=== PATIENT | male | born 1955 | race Caucasian/White ===

== ENCOUNTER 2019-08-05 12:14 | Inpatient (IN) | payer BC, OTHER ==
[~2019-08-05] VITALS: Ht 182.9 cm; Wt 90.7 kg
--- OUTSIDE RECORDS SUMMARY | 2019-08-05 12:18 | XMS REPORT ---
Author Author [facility] Organization [facility] Address [address] [place] [address] Phone Unavailable Care Team Providers Care Research Assistant Professor Name Role Phone Unavailable Unavailable Payers Payer Name Policy Type Policy Number Effective Date Expiration Date S ource Problems This patient has no known problems. Allergies, Adverse Reactions, Alerts Allergy Name Allergy Type Status Severity Reaction(s) Onset Date Inacti ve Date Treating Clinician Comments Source Penicillins DA Active 2018-01-30 00:00:00 [facility] neomycin DA Active 2018-01-30 00:00:00 [facility] bacitracin DA Active 2018-01-30 00:00:00 [facility] polymyxin B DA Active 2018-01-30 00:00:00 [facility] Medications This patient has no known medications. Procedures This patient has no known procedures. Results This patient has no known results.
[2019-08-05] MEDS ORDERED: SODIUM CHLORIDE 0.9% 1000ML 1,000 ML IV STA (12:48)
[2019-08-05] MEDS ORDERED: PANTOPRAZOLE 40 MG 10ML VIAL IV STA (12:48)
[2019-08-05 13:04] LABS: BASOPHILS # (AUTO) 0.1 (0.0-0.1); BASOPHILS % 0.7 % (0.0-1.0); EOSINOPHILS # (AUTO) 0.1 (0.0-0.4); EOSINOPHILS % 1.5 % (0.0-6.0); HEMATOCRIT 42.5 % (38.2-49.6); HEMOGLOBIN 15.7 g/dL (14.0-18.0); LYMPHOCYTES # (AUTO) 1.7 (1.0-3.2); LYMPHOCYTES % 18.8 % (18.0-39.1); MEAN CORPUSCULAR HEMOGLOBIN 36.7 pg (28-32); MEAN CORPUSCULAR HGB CONC 36.9 g/dL (31-35); MEAN CORPUSCULAR VOLUME 99.3 fL (81-99); MONOCYTES # (AUTO) 1.2 (0.2-0.8); MONOCYTES % 13.7 % (4.4-11.3); NEUTROPHILS # (AUTO) 5.8 (2.1-6.9); PLATELET COUNT 240 x10e3/uL (140-360); RED BLOOD COUNT 4.28 x10e6/uL (4.3-5.7); RED CELL DISTRIBUTION WIDTH 11.6 % (11.7-14.4)
[2019-08-05 13:22] LABS: INR 0.99; PROTHROMBIN TIME 13.7 seconds (11.9-14.5)
[2019-08-05 13:23] LABS: PARTIAL THROMBOPLASTIN TIME 30.8 seconds (23.8-35.5)
[2019-08-05 13:31] LABS: ALBUMIN 3.4 g/dL (3.5-5.0); ALBUMIN/GLOBULIN RATIO 0.9 (0.8-2.0); ANION GAP 12.3 mmol/L (8-16); CREATININE, SERUM 1.32 mg/dL (0.72-1.25); MAGNESIUM 2.2 MG/DL (1.3-2.1)
[2019-08-05 13:36] LABS: POTASSIUM 2.3 mmol/L (3.5-5.1)
[2019-08-05 13:47] LABS: BILIRUBIN,URINE NEGATIVE (NEGATIVE); CLARITY,URINE CLEAR (CLEAR); COLOR,URINE YELLOW (YELLOW); KETONES,URINE NEGATIVE (NEGATIVE); LEUKOCYTE ESTERASE ,URINE NEGATIVE (NEGATIVE); NITRITE,URINE NEGATIVE (NEGATIVE); PROTEIN,URINE DIPSTICK NEGATIVE (NEGATIVE); URINE UROBILINOGEN 0.2 mg/dL (0.2 - 1)
[2019-08-05 13:54] LABS: THYROID STIMULATING HORMONE 1.996 uIU/mL (0.350-4.940)
--- NOTE | 2019-08-05 13:55 | Diagnostic Imaging Report ---
EXAMINATION: CHEST SINGLE (PORTABLE) INDICATION: Weakness, fatigue COMPARISON: None FINDINGS: LINES/TUBES:EKG leads overlie the chest. LUNGS:The lungs are mildly hyperinflated. No focal consolidation or pulmonary edema. PLEURA:No pleural effusion or pneumothorax. MEDIASTINUM:The cardiomediastinal silhouette appears normal in size and shape. BONES/SOFT TISSUES:No acute osseous injury. Internal fixation hardware of the left clavicle. ABDOMEN:No free air under the diaphragm. IMPRESSION: No focal pneumonia or pulmonary edema. Signed by: Cliff Rees MD on 08/05/2019 1:51 PM
[2019-08-05 13:58] LABS: BACTERIA,URINE FEW /HPF; EPITHELIAL CELLS,URINE RARE /LPF; RBC,URINE 0-5 /HPF (0-5)
[2019-08-05] MEDS ORDERED: POTASSIUM CHLORIDE 20 MEQ TAB CR PO STA (14:02)
[2019-08-05] MEDS ORDERED: KCL 20MEQ/.9 SOD CHL 1,000 ML IV ONE (14:15)
--- NOTE | 2019-08-05 14:15 | Diagnostic Imaging Report ---
Examination: CT BRAIN WO CONTRAST History:Confusion. Altered mental status. Comparison studies:None Technique: Axial images were obtained from the skull base to the vertex. Coronal and sagittal images reconstructed from the axial data. Dose modulation, iterative reconstruction, and/or weight based adjustment of the mA/kV was utilized to reduce the radiation dose to as low as reasonably achievable. Intravenous contrast: None Findings: Scalp: No abnormalities. Bones: No fractures, blastic or lytic lesions. Brain sulci: Appropriate for age. Ventricles: Normal in size and configuration. No hydrocephalus. Extra-axial space: No abnormalities. Parenchyma: No masses, hemorrhage, or acute or chronic cortical based vascular insults.. Sellar/suprasellar region: No abnormalities. Craniocervical junction: Patent foramen magnum. No Chiari one malformation. Incidental findings: Atherosclerotic calcification of the cavernous and supraclinoid internal carotid arteries. Opacification of the right frontal sinus with focal dehiscence of the anterior wall (3.7 mm) and involvement of the right frontal soft tissues is identified and concerning for subperiosteal abscess with associated osteomyelitis. Opacified left frontal sinus with peripheral and internal dystrophic calcifications. Impression: No acute intracranial abnormalities. 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 Signed by: Dr. Smiley Rodriguez M.D. on 08/05/2019 2:12 PM
--- NOTE | 2019-08-05 14:18 | Emergency Department Note ---
History of Present Illnes History of Present Illness Chief Complaint: General Medicine Complaints History of Present Illness This is a 64 year old male complaints of altered mental status, confusion, weakness and constipation since a tic bite that took place about 4 weeks ago. Patient was seen at an urgent care 9 days ago for facial swelling, muscle pain, joint pain and weakness and was prescribed antibiotics and told his blood work was negative for lyme disease. The patient's weakness, joint and muscle pain and confusion have persisted. The tic bite was on the left upper thigh and appears slightly red but not swollen or painful. Patient is alert and oriented x 4 in triage. Historian: Patient, Family Member Arrival Mode: Car Mail Service Coordinator Required: No Onset (how long ago): week(s) (4 weeks) Location: all over Quality: achy Radiation: non-radiation Severity: moderate Onset quality: gradual Duration (how long): week(s) (4) Timing of current episode: constant Progression: waxing and waning Chronicity: new Context: recent illness Relieving factors: none Exacerbating factors: none Associated symptoms: confusion, malaise, weakness Treatments prior to arrival: none Past Medical/Family History Physician Review I have reviewed the patient's past medical and family history. Any updates have been documented here. Past Medical History Recent Fever: No Clinical Suspicion of Infectio: No New/Unexplained Change in Ment: Yes Past Medical History: Hypertension, Anxiety, Hyperlipedemia Other Surgery: shoulder replacement Collar bone surgery Social History Smoking Cessation: Current every day smoker Counseling Performed: No Alcohol Use: Social Any Illegal Drug Use: No TB Exposure/Symptoms: No Physically hurt or threatened: No Family History Family history of heart diseas: Yes Other Last Tetanus: 2 years ago Any Pre-Existing Lines (PICC,: No Is patient up to date on immun: Yes Last Flu: UTD Last Pneumovax: UTD Review of Systems Review of Systems Constitutional: malaise, weakness, other (~20 lb weight loss in 3 months) EENTM: no symptoms Cardiovascular: no symptoms Respiratory: no symptoms Gastrointestinal: no symptoms Genitourinary: no symptoms Musculoskeletal: joint pain, muscle pain, muscle stiffness Neurological: weakness, other (intermittent confusion & forgetfulness) Psychological: no symptoms Endocrine: no symptoms Hematological/Lymphatic: no symptoms Review of other systems All other systems reviewed and negative. Physical Exam Related Data Allergies: Coded Allergies: bacitracin (Verified Allergy, Severe, skin patrick, 08/05/19) lidocaine (Verified Allergy, Severe, skin patrick, 08/05/19) neomycin (Verified Allergy, Severe, patrick to skin, 08/05/19) polymyxin B (Verified Allergy, Severe, skin patrick, 08/05/19) Penicillins (Verified Allergy, Unknown, 08/05/19) Triage Vital Signs Vital Signs Date Time Temp Pulse Resp B/P (MAP) Pulse Ox O2 Delivery O2 Flow Rate FiO2 08/05/19 12:25 98.6 89 17 145/93 97 Vital signs reviewed: Yes Physical Exam CONSTITUTIONAL Constitutional: well-developed, well-nourished, ill appearing HENT HENT: normocephalic, atraumatic, oropharynx clear/moist, nose normal HENT L/R: left ext ear normal, right ext ear normal EYES Eyes: PERRL, conjunctivae normal NECK Neck: ROM normal PULMONARY Pulmonary: effort normal, breath sounds normal CARDIOVASCULAR Cardiovascular: regular rhythm, heart sounds normal, capillary refill normal, normal rate GASTROINTESTINAL Abdominal: soft, nontender, bowel sounds normal GENITOURINARY Genitourinary: exam deferred SKIN Skin: warm, dry, other (LEFT THIGH WITH SMALL SCABBED LESION, HEALING) MUSCULOSKELETAL Musculoskeletal: ROM normal NEUROLOGICAL Neurological: alert, oriented x 3, no gross motor or sensory deficits PSYCHOLOGICAL Psychological: mood/affect normal, judgement normal Results Laboratory Result Diagram: 08/05/19 1233 08/05/19 1233 Laboratory Laboratory Tests Test 08/05/19 13:20 08/05/19 12:33 Urine Color Yellow (YELLOW) Urine Clarity Clear (CLEAR) Urine pH 6.5 (5 - 7) Urine Specific [place] 1.020 (1.010-1.025) Urine Protein Negative (NEGATIVE) Urine Glucose (UA) Negative (NEGATIVE) Urine Ketones Negative (NEGATIVE) Urine Blood Trace (NEGATIVE) Urine Nitrite Negative (NEGATIVE) Urine Bilirubin Negative (NEGATIVE) Urine Urobilinogen 0.2 mg/dL (0.2 - 1) Urine Leukocyte Esterase Negative (NEGATIVE) Urine RBC 0-5 /HPF (0-5) Urine WBC None /HPF (0-5) Urine Epithelial Cells Rare /LPF (NONE) Urine Bacteria Few /HPF (NONE) Urine Coarse Granular Casts 1-5 (0) White Blood Count 8.96 x10e3/uL (4.8-10.8) Red Blood Count 4.28 x10e6/uL (4.3-5.7) Hemoglobin 15.7 g/dL (14.0-18.0) Hematocrit 42.5 % (38.2-49.6) Mean Corpuscular Volume 99.3 fL (81-99) Mean Corpuscular Hemoglobin 36.7 pg (28-32) Mean Corpuscular Hemoglobin Concent 36.9 g/dL (31-35) Red Cell Distribution Width 11.6 % (11.7-14.4) Platelet Count 240 x10e3/uL (140-360) Neutrophils (%) (Auto) 65.0 % (38.7-80.0) Lymphocytes (%) (Auto) 18.8 % (18.0-39.1) Monocytes (%) (Auto) 13.7 % (4.4-11.3) Eosinophils (%) (Auto) 1.5 % (0.0-6.0) Basophils (%) (Auto) 0.7 % (0.0-1.0) Neutrophils # (Auto) 5.8 (2.1-6.9) Lymphocytes # (Auto) 1.7 (1.0-3.2) Monocytes # (Auto) 1.2 (0.2-0.8) Eosinophils # (Auto) 0.1 (0.0-0.4) Basophils # (Auto) 0.1 (0.0-0.1) Absolute Immature Granulocyte (auto 0.03 x10e3/uL (0-0.1) Prothrombin Time 13.7 seconds (11.9-14.5) Prothromb Time International Ratio 0.99 Activated Partial Thromboplast Time 30.8 seconds (23.8-35.5) Sodium Level 133 mmol/L (136-145) Potassium Level 2.3 mmol/L (3.5-5.1) Chloride Level 90 mmol/L (98-107) Carbon Dioxide Level 33 mmol/L (22-29) Anion Gap 12.3 mmol/L (8-16) Blood Urea Nitrogen 37 mg/dL (7-26) Creatinine 1.32 mg/dL (0.72-1.25) Estimat Glomerular Filtration Rate 55 ML/MIN (60-) BUN/Creatinine Ratio 28 (6-25) Glucose Level 106 mg/dL (74-118) Calcium Level 18.0 mg/dL (8.4-10.2) Magnesium Level 2.2 MG/DL (1.3-2.1) Total Bilirubin 1.3 mg/dL (0.2-1.2) Aspartate Amino Transf (AST/SGOT) 243 IU/L (5-34) Alanine Aminotransferase (ALT/SGPT) 280 IU/L (0-55) Alkaline Phosphatase 139 IU/L (40-150) Creatine Kinase 14 IU/L (30-200) B-Type Natriuretic Peptide 243.6 pg/mL (0-100) Total Protein 7.3 g/dL (6.5-8.1) Albumin 3.4 g/dL (3.5-5.0) Globulin 3.9 g/dL (2.3-3.5) Albumin/Globulin Ratio 0.9 (0.8-2.0) Lab results reviewed: Yes Laboratory comments EXAMINATION: CHEST SINGLE (PORTABLE) INDICATION: Weakness, fatigue COMPARISON: None FINDINGS: LINES/TUBES:EKG leads overlie the chest. LUNGS:The lungs are mildly hyperinflated. No focal consolidation or pulmonary edema. PLEURA:No pleural effusion or pneumothorax. MEDIASTINUM:The cardiomediastinal silhouette appears normal in size and shape. BONES/SOFT TISSUES:No acute osseous injury. Internal fixation hardware of the left clavicle. ABDOMEN:No free air under the diaphragm. IMPRESSION: No focal pneumonia or pulmonary edema. Signed by: Cliff Rees MD on 08/05/2019 1:51 PM Examination: CT BRAIN WO CONTRAST History:Confusion. Altered mental status. Comparison studies:None Technique: Axial images were obtained from the skull base to the vertex. Coronal and sagittal images reconstructed from the axial data. Dose modulation, iterative reconstruction, and/or weight based adjustment of the mA/kV was utilized to reduce the radiation dose to as low as reasonably achievable. Intravenous contrast: None Findings: Scalp: No abnormalities. Bones: No fractures, blastic or lytic lesions. Brain sulci: Appropriate for age. Ventricles: Normal in size and configuration. No hydrocephalus. Extra-axial space: No abnormalities. Parenchyma: No masses, hemorrhage, or acute or chronic cortical based vascular insults.. Sellar/suprasellar region: No abnormalities. Craniocervical junction: Patent foramen magnum. No Chiari one malformation. Incidental findings: Atherosclerotic calcification of the cavernous and supraclinoid internal carotid arteries. Opacification of the right frontal sinus with focal dehiscence of the anterior wall (3.7 mm) and involvement of the right frontal soft tissues is identified and concerning for subperiosteal abscess with associated osteomyelitis. Opacified left frontal sinus with peripheral and internal dystrophic calcifications. Impression: No acute intracranial abnormalities. 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 Signed by: Dr. Smiley Rodriguez M.D. on 08/05/2019 2:12 PM Imaging Imaging results reviewed: Yes Impressions EXAMINATION: CHEST SINGLE (PORTABLE) INDICATION: Weakness, fatigue COMPARISON: None FINDINGS: LINES/TUBES:EKG leads overlie the chest. LUNGS:The lungs are mildly hyperinflated. No focal consolidation or pulmonary edema. PLEURA:No pleural effusion or pneumothorax. MEDIASTINUM:The cardiomediastinal silhouette appears normal in size and shape. BONES/SOFT TISSUES:No acute osseous injury. Internal fixation hardware of the left clavicle. ABDOMEN:No free air under the diaphragm. IMPRESSION: No focal pneumonia or pulmonary edema. Signed by: Cliff Rees MD on 08/05/2019 1:51 PM Diagnostics Tests Diagnostic test(s) reviewed: Yes Procedures 12 Lead ECG Interpretation Mail Service Coordinator: Interpreted by ED physician Date: August 05, 2019 Time: 12:29 Prior [employer] tracings: reviewed Rhythm: sinus rhythm Rate: normal (89) QRS axis: normal ST segments depression: II, III, aVF, V5, V6 T waves flattening: I, aVL, V5, V6 Clinical Impression: abnormal ECG Critical Care Time Total Critical Care Time (min): 35 Critcal care necessary due to: dehydration (SEVERE HYPERCALCEMIA) Critcal care time spent by me: discussion w consultants, discussion w primary provider, evaluation patient response to tx, examination of patient, order/review laboratory studies, order/review radiographic studies, re- evaluation of patient condition Subsequent provider I assumed direction of critical care for this patient from another provider of my specialty. Assessment & Plan Assessment & Plan Final Impression: (1) Sinusitis (2) Hypercalcemia (3) Hypokalemia (4) Renal insufficiency (5) Hepatitis Assessment & Plan IVF'S, HYDROCORTISONE, PAMIDRONATE, CALCITONIN ORDERED. ZOSYN/VANCO. ADMIT TO Dom JOINER Disposition: ADMITTED Last Vital Signs Date Time Temp Pulse Resp B/P (MAP) Pulse Ox O2 Delivery O2 Flow Rate FiO2 08/05/19 12:25 98.6 89 17 145/93 97 Medications in the ED Pantoprazole Sodium 40 mg ONCE STAT IV ; Start 08/05/19 at 12:48; Stop 08/05/19 at 12:49 Sodium Chloride 1,000 ml @ 0 mls/hr Q0M STAT IV ; Start 08/05/19 at 12:48; Stop 08/05/19 at 12:49 Potassium Chloride 40 meq NOW STAT PO ; Start 08/05/19 at 14:02; Stop 08/05/19 at 14:03; Status UNV Potassium Chloride/Sodium Chloride 1,000 ml @ 200 mls/hr Q5H ONCE IV ; Start 08/05/19 at 14:15; Stop 08/05/19 at 19:14; Status UNV RITO MARINELLI MD August 05, 2019 14:18
[2019-08-05] MEDS ORDERED: PAMIDRONATE DISODIUM 90 MG in SODIUM CHLORIDE 0.9% 1000ML 1,000 ML IV ONE (14:30)
[2019-08-05] MEDS ORDERED: CALCITONIN SALMON 400 IU/2ML VIAL IM ONE (14:30)
[2019-08-05] MEDS ORDERED: HYDROCORTISONE SOD SUCCINATE 100 MG VIAL IV ONE (14:30)
[2019-08-05 15:04] LABS: ERYTHROCYTE SEDIMENTATION RATE 30 mm/hr (0-13)
[2019-08-05] MEDS ORDERED: ONDANSETRON HCL INJ 2MG/ML 2ML 2 MG/ML VIAL IV PRN (15:15)
--- OUTSIDE RECORDS SUMMARY | 2019-08-05 15:31 | XMS REPORT ---
Author Author [facility] t Organization [facility] Address [address] [place] [id number] Phone Unavailable Care Team Providers Care Paraprofessional Interpreter Name Role Phone Carmita MARINELLI Attphys Unavailable Payers Payer Name Policy Type Policy Number Effective Date Expiration Date S ource Problems This patient has no known problems. Allergies, Adverse Reactions, Alerts Allergy Name Allergy Type Status Severity Reaction(s) Onset Date Inacti ve Date Treating Clinician Comments Source Penicillins DA Active 2018-01-30 00:00:00 [facility] neomycin DA Active 2018-01-30 00:00:00 [facility] bacitracin DA Active 2018-01-30 00:00:00 [facility] polymyxin B DA Active 2018-01-30 00:00:00 [facility] Medications This patient has no known medications. Procedures This patient has no known procedures. Results Test Description Test Time Test Comments Results Result Comments Source CT BRAIN WO 2019-08-05 14:08:00 [facility] [address] [address] Patient Name: YURIY FORD MR #: [id number] : 1955 Age/Sex: 64/M Req #: [id number] Adm Physician: Ordered by: RITO MARINELLI MD Report #: [id number] Location: ER Room/Bed: Procedure: [id number] CT/CT BRAIN WO Exam Date: 08/05/19 Exam Time: 1310 REPORT STATUS: Signed Examination: CT BRAIN WO CONTRAST History:Confusion. Altered mental status. Comparison studies:None Technique: Axial images were obtained from the skull base to the vertex. Coronal and sagittal images reconstructed from the axial data. Dose modulation, iterative reconstruction, and/or weight based adjustment of the mA/kV was utilized to reduce the radiation dose to as low as reasonably achievable. Intravenous contrast: None Findings: Scalp: No abnormalities. Bones: No fractures, blastic or lytic lesions. Brain sulci: Appropriate for age. Ventricles: Normal in size and configuration. No hydrocephalus. Extra-axial space: No abnormalities. Parenchyma: No masses, hemorrhage, or acute or chronic cortical based vascular insults.. Sellar/suprasellar region: No abnormalities. Craniocervical junction: Patent foramen magnum. No Chiari one malformation. Incidental findings: Atherosclerotic calcification of the cavernous and supraclinoid internal carotid arteries. Opacification of the right frontal sinus with focal dehiscence of the anterior wall (3.7 mm) and involvement of the right frontal soft tissues is identified and concerning for subperiosteal abscess with associated osteomyelitis. Opacified left frontal sinus with peripheral and internal dystrophic calcifications. Impression: No acute intracranial abnormalities. 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 Signed by: Dr. Smiley Rodriguez M.D. on 08/05/2019 2:12 PM Dictated By: SMILEY DANIEL MD 11 Transcribed By: FRANKY on 08/05/191411 COPY TO: RITO MARINELLI MD CHEST SINGLE (PORTABLE) 2019-08-05 13:51:[address] [address] Patient Name: YURIY FORD MR #: [id number] : 1955 Age/Sex: 64/M Req #: [id number] Adm Physician: Ordered by: RITO MARINELLI MD Report #: [id number] Location: ER Room/Bed: Procedure: [id number] DX/CHEST SINGLE (PORTABLE) Exam Date: 08/05/19 Exam Time: 1310 REPORT STATUS: Signed EXAMINATION: CHEST SINGLE (PORTABLE) INDICATION: Weakness, fatigue COMPARISON: None FINDINGS: LINES/TUBES:EKG leads overlie the chest. LUNGS:The lungs are mildly hyperinflated. No focal consolidation or pulmonary edema. PLE URA:No pleural effusion or pneumothorax. MEDIASTINUM:The cardiomediastinal silhouette appears normal in size and shape. BONES/SOFT TISSUES:No acute osseous injury. Internal fixation hardware of the left clavicle. ABDOMEN:No free air under the diaphragm. IMPRESSION: No focal pneumonia or pulmonary edema. Signed by: Alice Dumont MD on 08/05/2019 1:51 PM Dictated By: ALICE DUMONT MD 135 Transcribed By: FRANKY on 08/05/19 1351 COPY TO: RITO MARINELLI MD
[2019-08-05] MEDS ORDERED: VANCOMYCIN 1GM/NS 250 ML 250 ML IV ONE (16:00)
[2019-08-05] MEDS: CEFEPIME 2 GM/NS 0.9% 100 ML 100 ML IV SCH (16:51)
[2019-08-05] MEDS: SODIUM CHLORIDE 0.9% 1000ML 1,000 ML IV SCH ×2 (16:52→22:43)
--- NOTE | 2019-08-05 18:14 | NUR ---
PT ARRIVED TO UNIT VIA STRETCHER, RESP EVEN AND UNLABORED AT THIS TIME, PT HAS NO C/O PAIN WHEN ASKED, PT ORIENTED TO ROOM AND CALL LIGHT , BED IN LOWEST POSITION AT THIS TIME, BED RAILS UP X2, CALL LIGHT IN REACH WILL CONT TO MONITOR.
--- NOTE | 2019-08-05 18:51 | NUR ---
CALL TO DR SALENA LOBO FOR ORDERS PT B/P 177/103, P 126, R 18, PT ASYMPTOMATIC NO DISTRESS NOTED NO C/O PAIN NO C/O HEAD NOR CHEST PAIN, PT STATES HE WAS ON A BLOOD PRESSURE MEDICATION, BUT DON'T REMEMBER WHAT MEDICATION, PT HAD CALL LIGHT IN REACH.
[2019-08-05 19:12] LABS: CREATINE KINASE MB 1.8 ng/mL (0-5.0)
--- NOTE | 2019-08-05 19:28 | NUR ---
WALKING ROUNDS COMPLETE, REPORT GIVEN TO ONCOMING NURSE.
[2019-08-05 20:00] VITALS: BP_SYST 177; BP_SYST 183; BP_DIAS 103; BP_DIAS 92
[2019-08-05 20:42] VITALS: BP 183/92
[2019-08-06] VITALS (9 sets, daily range): BP systolic 129–175; BP diastolic 84–103
[2019-08-06] MEDS ORDERED: METOPROLOL TARTRATE INJ 1 MG/ML VIAL IV PRN (00:15)
--- NOTE | 2019-08-06 02:32 | History and Physical ---
PRIMARY CARE PHYSICIAN: None listed. CONSULTING PHYSICIANS: Momo Grove MD, with Endocrinology and Dr. Tony Stallings MD, with ENT. CHIEF COMPLAINT: Severe weakness and altered mental status. HISTORY OF PRESENT ILLNESS: Mr. Vasquez is a 64-year-old male, who presented to the emergency department with complaints of altered mental status, confusion, weakness and constipation since a tick did him on the left upper thigh 4 weeks ago. He was seen in Urgent Care 9 days ago for facial swelling, muscle pain, joint pain, and weakness, was told that his blood work was negative for Lyme disease. He was prescribed antibiotics. However, his weakness and confusion have persisted. He currently denies any joint or muscle pain. He denies any sick contacts or recent travel. PAST MEDICAL HISTORY: Hypertension, hyperlipidemia, anxiety. PAST SURGICAL HISTORY: Left shoulder replacement, left collarbone surgery. FAMILY HISTORY: Denies any significant past family history. SOCIAL HISTORY: He states he has been smoking 2 packs per day since age 26, so about 38 years for a total of 76 pack-years. He drinks alcohol daily, namely beer and hard liquor. He drinks about 2 drinks per day. He denies any history of illicit drug use. He lives with his and two stepchildren. 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 He denies use of a cane or walker, but has been extremely weak, which has affected his ability to ambulate. ALLERGIES: POLYMYXIN B, BACITRACIN, NEOMYCIN, LIDOCAINE, PENICILLINS. MEDICATIONS: No home medications are listed. He is currently on pamidronate disodium drip at 126 mL/h into peripheral IV, cefepime q.12 hours. He had one dose of vancomycin 1 g IV in the emergency department, p.r.n. Zofran, Pepcid b.i.d., IV Zosyn, hydrocortisone, Lasix. PHYSICAL EXAMINATION: VITAL SIGNS: Temperature 98.4, heart rate 84, blood pressure 145/93, subsequently 183/92, respirations 14, oxygen saturation 100% on room air. Height 6 feet 0 inches, weight 200 pounds, BMI 27.12. GENERAL: Supine in bed. Able to sit up on the edge of the bed; however, unable to lift his arms above his head. Difficult to balance. LUNGS: Clear to auscultation. Respiratory pattern even and unlabored. Insufficient inspiratory volume. HEENT: EOMI. NECK: Supple. No lymphadenopathy, thyromegaly, or JVD noted. CARDIOVASCULAR: Regular rate and rhythm. No murmur. ABDOMEN: Bowel sounds positive. Soft, nontender. No guarding. EXTREMITIES: Without pitting edema. No clubbing, cyanosis, or marked swelling. Obvious signs of venous stasis, bilateral lower extremities. NEUROLOGICAL: Lethargic, GCS 14, eye 3, verbal 5, motor 6. Nonfocal. LABORATORY DATA: WBC 8.96, hemoglobin 15.7, hematocrit 42.5, platelets 240. PT 13.7, INR 0.99, PTT 30.8. Sodium 133, potassium 2.3, chloride 90, CO2 of 33, anion gap 12.3, BUN 37, creatinine 1.32, estimated GFR 55, glucose 106, calcium 18, ionized calcium 2.1, magnesium 2.2, total bilirubin 1.3, AST 243, ALT 280, alkaline phosphatase 139, creatine kinase 14, CK-MB 2, troponin I 0.132. B-type natriuretic peptide 243.6, total protein 7.3, albumin 3.4. TSH 1.996. Repeat creatine kinase was 12, CK-MB 1.8, troponin I 0.126. Parathyroid hormone is pending as are parathyroid hormone interpretation related peptide. Urinalysis negative. No leukocyte esterase or nitrites, trace amount of blood, coarse granular casts 1-5. German virus by PCR is pending. Blood cultures x2 and urine culture have been collected and are pending. A 12-lead EKG showed normal sinus rhythm, heart rate of 89. Chest x-ray negative. No focal pneumonia. CT of the brain showed no acute intracranial abnormalities. Findings are concerning for right frontal sinus subperiosteal abscess with associated osteomyelitis. ASSESSMENT AND PLAN: 1. Acute sinusitis, possible right frontal sinus subperiosteal abscess with associated osteomyelitis. ENT consulted. WBCs within normal limits. IV vancomycin and cefepime have been given vancomycin was a one-time dose. Continue IV fluids. 2. Severe acute hypercalcemia. Endocrinology consulted. Calcium level 18, ionized calcium level 2.1. Continue pamidronate disodium IV infusion and calcitonin. Hydrocortisone given for swelling. 3. Acute hypokalemia. Potassium level 2.3, status post 40 mEq p.o. once. Reassess potassium in the morning. 4. Altered mental status from baseline with generalized weakness. Monitor for improvement as calcium level is corrected. Physical Therapy eval and treat. Alert, oriented x4 with some lethargy during encounter. 5. Uncontrolled hypertension, 183/92. Monitor for improvement as calcium is corrected. IV metoprolol 2.5 mg IV q.6 hours p.r.n. for systolic blood pressure greater than 150. 6. Acute kidney injury versus chronic kidney disease. Continue IV fluids. Creatinine 1.32, estimated GFR 55. Unsure of baseline. Monitor renal function with daily labs. 7. Current smoker with history of 76 pack years. Encouraged cessation. 8. Transaminitis with daily ETOH use. Total bilirubin 1.3, AST 243, ALT 280. Monitor LFTs. 9. Acute mild hyponatremia. Sodium 133. Monitor for improvement. Continue current IV fluids. 10. Acute mild hypomagnesemia. Magnesium level 2.2. Continue IV fluids. Monitor magnesium level. 11. Hyperlipidemia. Assess lipid panel. 12. Anxiety. Supportive care. 13. Tick bite 4 weeks ago. Apparently, previous blood work showed no Lyme disease. 14. Ambulatory dysfunction. PT eval and treat. 15. Venous stasis. 16. Prophylaxis, IV Pepcid b.i.d. H and P time spent 70 minutes. [id number]. Dictated by Rodrigue Lester NP Jerardo oRsales MD HWP/MODL /[id number]
[2019-08-06] MEDS: CEFEPIME 2 GM/NS 0.9% 100 ML 100 ML IV SCH ×2 (04:00→17:08)
[2019-08-06 05:13] LABS: BASOPHILS % 0.4 % (0.0-1.0); EOSINOPHILS # (AUTO) 0.1 (0.0-0.4); EOSINOPHILS % 0.6 % (0.0-6.0); HEMATOCRIT 34.5 % (38.2-49.6); HEMOGLOBIN 12.9 g/dL (14.0-18.0); LYMPHOCYTES # (AUTO) 1.4 (1.0-3.2); LYMPHOCYTES % 14.6 % (18.0-39.1); MEAN CORPUSCULAR HEMOGLOBIN 36.6 pg (28-32); MEAN CORPUSCULAR HGB CONC 37.4 g/dL (31-35); MONOCYTES # (AUTO) 1.1 (0.2-0.8); NEUTROPHILS # (AUTO) 6.7 (2.1-6.9); PLATELET COUNT 205 x10e3/uL (140-360); RED BLOOD COUNT 3.52 x10e6/uL (4.3-5.7); RED CELL DISTRIBUTION WIDTH 11.5 % (11.7-14.4)
[2019-08-06 05:33] LABS: ALANINE AMINOTRANSFERASE 207 IU/L (0-55); ALBUMIN 2.7 g/dL (3.5-5.0); ALBUMIN/GLOBULIN RATIO 0.9 (0.8-2.0); ALKALINE PHOSPHATASE 112 IU/L (40-150); ANION GAP 12.5 mmol/L (8-16); BLOOD UREA NITROGEN 36 mg/dL (7-26); BUN/CREATININE RATIO 31 (6-25); CARBON DIOXIDE 25 mmol/L (22-29); CHLORIDE 103 mmol/L (98-107); CREATININE, SERUM 1.17 mg/dL (0.72-1.25); EST GLOMERULAR FILTRATION RATE > 60 ML/MIN (60-); GLUCOSE 103 mg/dL (74-118); SODIUM 138 mmol/L (136-145)
[2019-08-06 05:35] LABS: CALCIUM 13.9 mg/dL (8.4-10.2)
[2019-08-06 05:36] LABS: POTASSIUM 2.5 mmol/L (3.5-5.1)
[2019-08-06] MEDS: SODIUM CHLORIDE 0.9% 1000ML 1,000 ML IV SCH ×3 (05:39→21:27)
[2019-08-06 05:56] LABS: CREATINE KINASE < 7 IU/L (30-200)
[2019-08-06] MEDS ORDERED: FUROSEMIDE INJ 10 MG/ML 2 ML VIAL IV SCH (06:00)
--- NOTE | 2019-08-06 06:40 | NUR ---
NEW CONSULTS FOR MIKAELA GIBBS AND DR. VZAQUEZ CALLED
[2019-08-06] MEDS ORDERED: POTASSIUM CHLORIDE 20MEQ/100ML 300 ML IV ONE (09:00)
[2019-08-06] MEDS ORDERED: ACETAMINOPHEN/CODEINE 300MG - 30MG TAB PO PRN (09:15)
[2019-08-06] MEDS ORDERED: ACETAMINOPHEN 325 MG TAB PO PRN (09:15)
[2019-08-06] MEDS: FAMOTIDINE 20 MG/2 ML VIAL IV SCH ×2 (09:27→17:00)
[2019-08-06] MEDS: POTASSIUM CHLORIDE 10MEQ EA PO SCH ×2 (10:00→17:00)
--- NOTE | 2019-08-06 13:35 | NUR ---
Mr. Vasquez is a 64-year-old male, who presented to the emergency department with complaints of altered mental status, confusion, weakness and constipation since a tick did him on the left upper thigh 4 weeks ago. He was seen in Urgent Care 9 days ago for facial swelling, muscle pain, joint pain, and weakness, was told that his blood work was negative for Lyme disease. He was prescribed antibiotics. However, his weakness and confusion have persisted. He currently denies any joint or muscle pain. He denies any sick contacts or recent travel. PAST MEDICAL HISTORY: Hypertension, hyperlipidemia, anxiety. PAST SURGICAL HISTORY: Left shoulder replacement, left collarbone surgery. FAMILY HISTORY: Denies any significant past family history. SOCIAL HISTORY: He states he has been smoking 2 packs per day since age 26, so about 38 years for a total of 76 pack-years. He drinks alcohol daily, namely beer and hard liquor. He drinks about 2 drinks per day. He denies any history of illicit drug use. He lives with his and two stepchildren. 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 He denies use of a cane or walker, but has been extremely weak, which has affected his ability to ambulate. ALLERGIES: POLYMYXIN B, BACITRACIN, NEOMYCIN, LIDOCAINE, PENICILLINS. MEDICATIONS: No home medications are listed. He is currently on pamidronate disodium drip at 126 mL/h into peripheral IV, cefepime q.12 hours. He had one dose of vancomycin 1 g IV in the emergency department, p.rLety Rushing b.i.d., IV Zosyn, hydrocortisone, Lasix. [id number]
[2019-08-06] MEDS ORDERED: SODIUM CHLORIDE 0.9% 50ML 50 ML ONE (14:48)
[2019-08-06] MEDS ORDERED: IOPAMIDOL 370 MG/ML 200 ML INFUS..BTL INJ ONE (14:48)
--- NOTE | 2019-08-06 15:13 | Diagnostic Imaging Report ---
EXAM: CT Chest, Abdomen and Pelvis WITH intravenous contrast INDICATION: Hepatitis, hypercalcemia COMPARISON: Chest radiograph of 08/05/2019 TECHNIQUE: The chest, abdomen and pelvis were scanned utilizing a multidetector helical scanner from the thoracic inlet to the pubic symphysis following administration of IV contrast. Coronal and sagittal reformations were obtained. Scan was performed during portal venous phase. IV CONTRAST: 100cc Isovue 370 ORAL CONTRAST: Water COMPLICATIONS: None RADIATION DOSE: Total DLP: 1071.3 mGy*cm Dose modulation, iterative reconstruction, and/or weight based adjustment of the mA/kV was utilized to reduce the radiation dose to as low as reasonably achievable. FINDINGS: LINES/ TUBES: None. LUNGS AND AIRWAYS: No focal consolidation or pulmonary edema. No suspicious pulmonary nodules. PLEURA: The pleural spaces are clear. HEART AND MEDIASTINUM: The thyroid gland is normal. No mediastinal, hilar or axillary lymphadenopathy. The heart is normal in size.. There is no pericardial effusion. No central pulmonary embolism. HEPATOBILIARY: Mild diffuse hepatic steatosis. No focal liver lesion. No biliary ductal dilation. Unremarkable gallbladder. SPLEEN: No splenomegaly. PANCREAS: No focal masses or ductal dilatation. ADRENALS: No adrenal nodules. KIDNEYS/URETERS: No hydronephrosis, stones, or solid mass lesions. PELVIC ORGANS/BLADDER: Unremarkable. PERITONEUM / RETROPERITONEUM: No free air or fluid. LYMPH NODES: No lymphadenopathy. VESSELS: Moderate scattered atherosclerotic calcifications of the nonaneurysmal abdominal aorta and major branches. GI TRACT: Residual oral contrast material throughout the colon. Mild diverticulosis. No CT evidence of diverticulitis. No abnormal bowel thickening. No bowel obstruction. Normal appendix. BONES AND SOFT TISSUES: No acute osseous injury. Old partially healed left posterior 10th rib fracture. No suspicious lytic or blastic lesions. Postoperative findings of internal fixation hardware of the left clavicle and left shoulder hemiarthroplasty. IMPRESSION: No evidence of primary or metastatic disease in the chest abdomen or pelvis. Diffuse hepatic steatosis. Diverticulosis without CT evidence of diverticulitis. Signed by: Cliff Rees MD on 08/06/2019 3:10 PM
--- NOTE | 2019-08-06 16:51 | Consultation ---
DATE OF CONSULTATION: Endocrine Consultation This is a patient of Dr. Rosales. Thank you very much for referring this patient. HISTORY OF PRESENT ILLNESS: This is a 64-year-old white male gentleman who was referred to me for evaluation of hypercalcemia. The patient was brought to the hospital with history of nausea, vomiting, and extreme weakness and altered mental status. On further evaluation, he was found to have a calcium of 18. He has a history of significant weight loss in the last six months. The patient also has had history of alcoholism in the past. His other medical problems include history of hypertension. The patient is a chronic smoker. PHYSICAL EXAMINATION: GENERAL: Today, the patient is awake. He is slightly emaciated. VITAL SIGNS: His heart rate is around 78, blood pressure 130/80 mmHg. HEENT: Examination essentially unremarkable. Thyroid is palpable. Clinically, he is near euthyroid. CHEST: Bilateral vesicular breathing. He has bilateral bronchospasm. CARDIAC: First and second heart sound. There is no third or fourth heart sound. Ejection systolic murmur grade 2/6. The patient has mild calf tenderness. IMPRESSION: Hypercalcemia, rule out cancer related hypercalcemia, rule out hyperparathyroidism. Dehydration, hypertension, and chronic alcoholism. PLAN: At this time, the patient has already received one dose of Aredia. We will continue the IV normal saline and Lasix and also do a serum PTH peptide level. Thanks for referring this patient. I will follow this patient with you. MD KARLI Aparicio/HARMEET /[id number]
[2019-08-06] MEDS: VANCOMYCIN 1GM/NS 250 ML 250 ML IV SCH (17:00)
--- NOTE | 2019-08-06 17:07 | NUR ---
Nutrition Intervention Note RD Recommendation(s) for Physician: -Encourage nutrition supplements -Recommend advancing diet when medically appropriate The patient meets criteria for unspecified SEVERE protein-calorie malnutrition. Plan of Care: RD following, monitoring for tolerance and adequacy Nutrition reason for involvement: Nutrition Risk Trigger MST 5 RD Assessment (08/06/19) Pt is a 64 year old male admitted with hepatitis, hypercalcemia, hypokalemia, renal insufficiency and sinusitis. Spoke to family member at bedside and pt. Pt has been tolerating liquids. Family member reported pt has been consuming < 50% of meals for the past week. Family member also stated pt has lost weight and used to weigh 220 lbs about 2 months ago. Pt currently has a weight of 200 lbs. This would be a 9% weight loss in 2 months which is considered to be significant weight loss. Pt reports some nausea. Offered pt a nutrition supplement, but pt declined. Will continue to monitor unless consulted sooner Principal Problems/Diagnoses: hepatitis, hypercalcemia, hypokalemia, renal insufficiency and sinusitis PMH: Hypertension, hyperlipidemia, anxiety. GI: soft, non-tender abdomen Skin: intact Labs: (08/05) K 2.5, BUN 36, Ca 13.9, AST 144, ALT 207 Meds: NaCl, KCl, pepcid, metoprolol, cefepime, lasix, vancomycin, zofran Ht: 72 inches Wt: 200 lbs BMI: 27.1 kg/m2 IBW: 178 lbs Malnutrition Evaluation (08/06/19) The patient meets criteria for unspecified SEVERE protein-calorie malnutrition. Energy intake: <50% of estimated energy requirements for >5 days Weight loss: 9% in 2 months Fat loss: unable to evaluate pt declined NFPE at time of visit Muscle loss: unable to evaluate pt declined NFPE at time of visit Supporting Evidence: Fluid accumulation: unable to evaluate Functional Status: unable to evaluate Nutrition Prescription (Diet Order): clear liquids Estimated Nutritional Needs: 6866-1488 calories/day (18-20 kcal/kg CBW) 90-135 g protein/day (1-1.5 g pro/kg CBW) Diet Adequacy: Not meeting calorie needs, Not meeting protein needs Tolerance: Tolerating PO Diet Education Needs Assessment: Diet education not indicated, patient on temporary/transition diet. Nutrition Care Level: moderate Nutrition Diagnosis: Severe malnutrition related to acute illness as evidenced by pt meeting < 50% of estimated energy needs for > 5 days and 9% weight loss in 2 months. Goal: Patient will meet 75-100% of estimated needs by follow up Progress: N/A Interventions: -General healthful diet, encourage Commercial beverage Monitoring/Evaluation: -Total energy intake, Total protein intake, Weight change Signed: Nancie Reza RD, LD
[2019-08-06] MEDS: SALINE 0.65% NAS SOLN 1 SPRAY BTL SCH ×2 (17:16→21:27)
[2019-08-06] MEDS ORDERED: MELATONIN 5 MG TABLET PO PRN (21:00)
[2019-08-07] VITALS (9 sets, daily range): BP systolic 123–148; BP diastolic 82–93
[2019-08-07] MEDS: CEFEPIME 2 GM/NS 0.9% 100 ML 100 ML IV SCH ×2 (03:34→15:36)
[2019-08-07] MEDS: VANCOMYCIN 1GM/NS 250 ML 250 ML IV SCH ×2 (03:35→15:36)
[2019-08-07] MEDS: FUROSEMIDE INJ 10 MG/ML 2 ML VIAL IV SCH (06:04)
[2019-08-07] MEDS: SALINE 0.65% NAS SOLN 1 SPRAY BTL SCH ×5 (06:04→22:40)
[2019-08-07 06:29] LABS: BASOPHILS # (AUTO) 0.1 (0.0-0.1); BASOPHILS % 0.9 % (0.0-1.0); EOSINOPHILS % 0.5 % (0.0-6.0); HEMATOCRIT 35.3 % (38.2-49.6); HEMOGLOBIN 12.5 g/dL (14.0-18.0); LYMPHOCYTES # (AUTO) 0.2 (1.0-3.2); LYMPHOCYTES % 3.6 % (18.0-39.1); MEAN CORPUSCULAR HEMOGLOBIN 35.7 pg (28-32); MEAN CORPUSCULAR HGB CONC 35.4 g/dL (31-35); MEAN CORPUSCULAR VOLUME 100.9 fL (81-99); MONOCYTES # (AUTO) 0.3 (0.2-0.8); MONOCYTES % 5.3 % (4.4-11.3); NEUTROPHILS # (AUTO) 5.2 (2.1-6.9); PLATELET COUNT 142 x10e3/uL (140-360); RED CELL DISTRIBUTION WIDTH 11.8 % (11.7-14.4)
[2019-08-07 06:51] LABS: ALBUMIN 2.6 g/dL (3.5-5.0); ALBUMIN/GLOBULIN RATIO 0.8 (0.8-2.0); ANION GAP 10.8 mmol/L (8-16); CREATININE, SERUM 1.46 mg/dL (0.72-1.25)
[2019-08-07 07:12] LABS: POTASSIUM 2.8 mmol/L (3.5-5.1)
--- NOTE | 2019-08-07 07:46 | Diagnostic Imaging Report ---
Exam: KUB -one view Clinical History: Constipation. Comparison: CT Abdomen/Pelvis 08/06/2019. Findings/Impression: Limited portable radiograph with exclusion of a portion of the right hemiabdomen. Oral contrast material throughout the colon. Moderate amount of stool in the colon and rectum. Nonobstructive bowel gas pattern. No evidence of free intraperitoneal air. Dextroconvex scoliosis of the lumbar spine. No acute osseous abnormality. Signed by: Dr. Dustin Santizo MD on 08/07/2019 7:43 AM
[2019-08-07] MEDS: SODIUM CHLORIDE 0.9% 1000ML 1,000 ML IV SCH ×3 (09:24→20:00)
[2019-08-07] MEDS: FAMOTIDINE 20 MG/2 ML VIAL IV SCH ×2 (09:24→17:43)
[2019-08-07] MEDS: FLUTICASONE PROPIONATE NASAL SPRAY NS SCH (09:25)
[2019-08-07] MEDS: POTASSIUM CHLORIDE 10MEQ EA PO SCH ×2 (09:25→17:44)
[2019-08-07] MEDS ORDERED: POTASSIUM CHLORIDE 20MEQ/100ML 300 ML IV ONE (10:30)
[2019-08-07] MEDS ORDERED: BISACODYL 5 MG TAB EC PO NR (10:30)
--- NOTE | 2019-08-07 14:55 | Consultation ---
DATE OF CONSULTATION: 08/07/2019 Hospital Consultation HISTORY OF PRESENT ILLNESS: I was kindly asked to see this 64-year-old man for evaluation of frontal sinusitis with possible osteomyelitis and subperiosteal abscess. The patient presented to the Emergency Department with multiple metabolic abnormalities and altered mental status. Subsequent CT scan was obtained, which showed opacification of the frontal sinuses bilaterally. The right frontal sinus had area of focal dehiscence in the anterior wall of approximately 3.7 mm and possible involvement of the soft tissues. There was concern for possible subperiosteal abscess and associated osteomyelitis. The patient has a lifelong history of "allergy and sinus." He has no previous history of nasal or sinus surgery or allergy workup. He has required 3-4 courses of antibiotics for treatment of his sinusitis in his lifetime. He is a poor historian and despite repeated questioning at different times, he does not recall trauma to his forehead or previous surgery to the forehead region. His history of present illness, past medical history, and past surgical history were reviewed in detail in the chart, it is pertinent for a consistently normal white blood cell count and being afebrile. On examination, the right pinna is normal, right external auditory canal is normal, and right tympanic membrane is normal. The left pinna is normal, left external auditory canal is normal, and the left tympanic membrane is normal. Intranasal examination shows a mild nasal septal deviation to the left and nasal mucosa is unremarkable, and specifically there is no evidence of active infection, edema, or clear secretions to suggest allergy or active sinus pathology. Oral cavity and pharyngeal examination are unremarkable. There is no palpable cervical adenopathy. On fiberoptic diagnostic rhinoscopy, the ostiomeatal complex was visualized on both sides and there is no active infection identified. He is noted to have a 3 cm scar overlying the region of the abnormalities identified on the CT scan. Palpation of this area shows there is absolutely no tenderness or surrounding edema. There is no overlying erythema. The bone is irregular in this region, however, is nontender. ASSESSMENT: CT scan evidence of frontal sinusitis with abnormalities noted in the anterior wall of the right frontal sinus, both on examination and on CT scan; however, the clinical presentation would be very atypical for subperiosteal abscess and osteomyelitis and the abnormalities are more consistent with previous trauma or possibly healed previous periosteal abscess. PLAN: 1. Continuation of current topical therapy. 2. Consideration of outpatient observation and possible drainage of the frontal sinuses based on clinical course versus continuation of current plans with IV antibiotic therapy. Thank you very much. MD BLAYNE Terrell/MODBoris /[id number]
--- NOTE | 2019-08-07 19:20 | NUR ---
Patient visited in room during nursing rounds. Patient alert and oriented x3. at bedside. No c/o pain or any discomfort at this time. Pt prefers to sit at bedside recliner at this time. Pt ambulates with use of walker and assistance from prn. Pt on scheduled IV antibiotics. Informed patient Vanc trough levels to be drawn at 0200 but patient requested that it be drawn along with AM labs at [id number]. Will inform pharmacy for time change. Call higgins within reach. Will monitor closely.
--- NOTE | 2019-08-07 22:00 | NUR ---
Patient ambulating on the hallway using a walker and accompanied/assisted by on his side. Pt ambulates fine with no discomfort or pain.
[2019-08-08] VITALS (10 sets, daily range): BP systolic 125–149; BP diastolic 77–99
[2019-08-08] MEDS: CEFEPIME 2 GM/NS 0.9% 100 ML 100 ML IV SCH ×2 (03:00→15:00)
[2019-08-08] MEDS ORDERED: VANCOMYCIN 1GM/NS 250 ML 250 ML IV SCH ×2 (05:00→21:00)
[2019-08-08 05:48] LABS: BASOPHILS # (AUTO) 0.1 (0.0-0.1); BASOPHILS % 0.7 % (0.0-1.0); EOSINOPHILS # (AUTO) 0.1 (0.0-0.4); EOSINOPHILS % 2.1 % (0.0-6.0); HEMATOCRIT 33.2 % (38.2-49.6); HEMOGLOBIN 11.9 g/dL (14.0-18.0); LYMPHOCYTES # (AUTO) 0.8 (1.0-3.2); LYMPHOCYTES % 11.7 % (18.0-39.1); MEAN CORPUSCULAR HEMOGLOBIN 36.1 pg (28-32); MEAN CORPUSCULAR HGB CONC 35.8 g/dL (31-35); MEAN CORPUSCULAR VOLUME 100.6 fL (81-99); MONOCYTES # (AUTO) 0.5 (0.2-0.8); MONOCYTES % 6.7 % (4.4-11.3); NEUTROPHILS # (AUTO) 5.3 (2.1-6.9); NEUTROPHILS % 78.2 % (38.7-80.0); PLATELET COUNT 148 x10e3/uL (140-360); RED CELL DISTRIBUTION WIDTH 11.8 % (11.7-14.4)
[2019-08-08] MEDS: SALINE 0.65% NAS SOLN 1 SPRAY BTL SCH ×5 (06:00→21:28)
[2019-08-08] MEDS: FUROSEMIDE INJ 10 MG/ML 2 ML VIAL IV SCH (06:21)
--- NOTE | 2019-08-08 06:25 | NUR ---
Paged Dr. Singh (via answering service - [place]) to inform of Vanc trough of 21.5. Vancomycin 1gm scheduled this morning not given yet. Awaiting on Dr. Singh's call back and decision whether or not to give Vancomycin 1gm IV.
[2019-08-08 06:34] LABS: CALCIUM IONIZED 1.6 mmol/L (1.09-1.30)
[2019-08-08 06:55] LABS: ALBUMIN 2.4 g/dL (3.5-5.0); ALBUMIN/GLOBULIN RATIO 0.8 (0.8-2.0); ANION GAP 10.9 mmol/L (8-16); CALCIUM 10.4 mg/dL (8.4-10.2); CREATININE, SERUM 1.24 mg/dL (0.72-1.25); MAGNESIUM 1.6 MG/DL (1.3-2.1)
[2019-08-08 06:58] LABS: POTASSIUM 2.9 mmol/L (3.5-5.1)
[2019-08-08] MEDS: POTASSIUM CHLORIDE 10MEQ EA PO SCH ×3 (08:24→16:48)
[2019-08-08] MEDS: FLUTICASONE PROPIONATE NASAL SPRAY NS SCH (08:24)
[2019-08-08] MEDS: FAMOTIDINE 20 MG/2 ML VIAL IV SCH ×2 (08:24→16:48)
[2019-08-08] MEDS ORDERED: POTASSIUM CHLORIDE 20MEQ/100ML 200 ML IV ONE (09:00)
--- NOTE | 2019-08-08 19:25 | NUR ---
Patient visited in room during nursing rounds. Patient alert and oriented x3. at bedside. No c/o pain or any discomfort at this time. Pt prefers to sit at bedside recliner at this time. Pt ambulates with use of walker and assistance from prn. Pt on scheduled IV antibiotics. Pt and aware pt scheduled for procedure (aspiration of right frontal sinus subperiosteal abscess) tomorrow. Call higgins within reach. Will monitor closely.
--- NOTE | 2019-08-08 19:32 | Diagnostic Imaging Report ---
Bone Scan, delayed phase INDICATION: Hypercalcemia COMPARISON: CT CAP 08/06/2019 REPORT: Approximately 3 hours following intravenous administration of 27.5 mCi of Tc-99m MDP, delayed total body images in the anterior and posterior projections and selected spot images were obtained. Focal increased tracer activity in the ethmoids and right frontal sinuses, consistent with inflammation. Round focal area of increased tracer activity in the left 10th rib posteriorly, consistent with healing rib fracture. Decreased tracer is seen in the right femoral head, likely sequela of avascular necrosis. Otherwise, distribution of tracer activity is unremarkable throughout the skeletal system. Two foci of increased tracer are seen in the soft tissues anterior to the left humeral shaft, consistent with scarring with microcalcification. No abnormal accumulation of tracer is seen in the urinary tract. IMPRESSION: No scan evidence of metastatic or metabolic bone disease. Signed by: Dr. Ann Trinh M.D. on 08/08/2019 7:29 PM
--- NOTE | 2019-08-08 20:12 | NUR ---
Pt agreed and signed consent form for tomorrow's procedure (aspiration of right frontal sinus subperiosteal abscess).
[2019-08-08] MEDS: SODIUM CHLORIDE 0.9% 1000ML 1,000 ML IV SCH (21:20)
[2019-08-09] VITALS (7 sets, daily range): BP systolic 130–158; BP diastolic 69–92
[2019-08-09] MEDS: CEFEPIME 2 GM/NS 0.9% 100 ML 100 ML IV SCH ×2 (02:51→15:00)
[2019-08-09 05:31] LABS: BASOPHILS # (AUTO) 0.1 (0.0-0.1); BASOPHILS % 1.1 % (0.0-1.0); EOSINOPHILS # (AUTO) 0.2 (0.0-0.4); EOSINOPHILS % 2.8 % (0.0-6.0); LYMPHOCYTES % 12.9 % (18.0-39.1); MEAN CORPUSCULAR HEMOGLOBIN 36.9 pg (28-32); MEAN CORPUSCULAR HGB CONC 36.4 g/dL (31-35); MEAN CORPUSCULAR VOLUME 101.5 fL (81-99); MONOCYTES # (AUTO) 0.5 (0.2-0.8); MONOCYTES % 7.2 % (4.4-11.3); NEUTROPHILS # (AUTO) 5.6 (2.1-6.9); NEUTROPHILS % 75.5 % (38.7-80.0); PLATELET COUNT 150 x10e3/uL (140-360); RED BLOOD COUNT 3.25 x10e6/uL (4.3-5.7); RED CELL DISTRIBUTION WIDTH 11.8 % (11.7-14.4)
[2019-08-09] MEDS: SALINE 0.65% NAS SOLN 1 SPRAY BTL SCH ×3 (05:52→15:13)
[2019-08-09] MEDS: FUROSEMIDE INJ 10 MG/ML 2 ML VIAL IV SCH (05:52)
[2019-08-09 05:54] LABS: ALANINE AMINOTRANSFERASE 104 IU/L (0-55); ALBUMIN 2.5 g/dL (3.5-5.0); ALBUMIN/GLOBULIN RATIO 0.8 (0.8-2.0); ALKALINE PHOSPHATASE 111 IU/L (40-150); ANION GAP 11.1 mmol/L (8-16); BLOOD UREA NITROGEN 34 mg/dL (7-26); BUN/CREATININE RATIO 31 (6-25); CALCIUM 9.8 mg/dL (8.4-10.2); CARBON DIOXIDE 16 mmol/L (22-29); CHLORIDE 114 mmol/L (98-107); CREATININE, SERUM 1.11 mg/dL (0.72-1.25); EST GLOMERULAR FILTRATION RATE > 60 ML/MIN (60-); GLUCOSE 111 mg/dL (74-118); MAGNESIUM 1.6 MG/DL (1.3-2.1); POTASSIUM 3.1 mmol/L (3.5-5.1); SODIUM 138 mmol/L (136-145)
[2019-08-09] MEDS: FAMOTIDINE 20 MG/2 ML VIAL IV SCH ×2 (08:51→17:00)
[2019-08-09] MEDS ORDERED: POTASSIUM CHLORIDE 20MEQ/100ML 200 ML IV ONE (09:00)
[2019-08-09] MEDS: POTASSIUM CHLORIDE 10MEQ EA PO SCH ×2 (09:00→17:00)
[2019-08-09] MEDS: FLUTICASONE PROPIONATE NASAL SPRAY NS SCH (11:00)
--- NOTE | 2019-08-09 11:46 | NUR ---
Spoked to IR Doctor and he said CT shows infection and there is no indication to do aspiration and he spoked to Dr Singh. Per Dr Singh cancelled the procedure, he talked to patient and his
--- NOTE | 2019-08-09 12:52 | Progress Note ---
DATE: SUBJECTIVE: The patient is seen and evaluated. Available labs and notes reviewed. Discussed with the . Discussed with the patient. Discussed with Dr. Singh. Dr. Singh discussed with Interventional Radiology, apparently no abscess seen when CT was re-evaluated of the head. REVIEW OF SYSTEMS: Per my discussion with the and the patient, the patient has more periods of being alert and oriented x3 and overall his mentation improved. No nausea, vomiting, fever, chills, chest pain, or shortness of breath. MEDICATIONS: Medication list is reviewed. From Infectious Disease point of view, the patient is on cefepime and vancomycin IV. LABORATORY STUDIES: White count 7.46, hemoglobin 12, and platelet 150. Sodium 138, potassium 3.1, and creatinine 1.11. Toxicology; vancomycin trough was 21.5 on 08/07-vancomycin IV was adjusted. Serology; coronavirus PCR 08/04 and hepatitis panel pending. The patient also has total protein of 5.6 with an albumin of 2.5, AST 57 improved from 62, ALT 104 improved from 117. MICROBIOLOGY: Blood culture and urine culture negative from 08/04. RADIOLOGY STUDIES: No new radiology studies available. Had a KUB yesterday showed nonobstructive gas pattern of course, bowel-gas pattern. No evidence of fluid or intraperitoneal air. PHYSICAL EXAMINATION: VITAL SIGNS: Temperature 97.4, pulse 81, respirations 15, and blood pressure 134/84. GENERAL: Alert and oriented, comfortable in a recliner. CV: S1-S2. CHEST: Equal expansion. Clear to auscultation. No acute distress. ABDOMEN: Soft, nontender. No distention. HEENT: Moist. No pallor. No JVD. EXTREMITIES: No edema and moves all extremities. ASSESSMENT AND PLAN: 1. Altered mental status, improving. 2. Electrolyte abnormalities. 3. Recent history of a tick bite. 4. Sinusitis. 5. Elevated vancomycin trough. On a CT of the brain, which was done on 08/04, it was transcribed that the patient might have/concerning for the right frontal sinus subperiosteal abscess with associated osteomyelitis. However, on a recheck by Interventional Radiology, there is no abscess noted. Therefore, there is no aspiration of fluid. Continue with antibiotics. Discussed with Dr. Singh in details. Please refer to the chart for more information. Dictated by Ronnie Emmanuel PA-C (Al) MD INDY Gross/HARMEET /[id number]
--- NOTE | 2019-08-09 14:49 | NUR ---
Spoke with FANNY Mcintosh, states they are arranging abx thru Dr. Singh's office. DELMAR spoke with MICHAEL Yost in office. States she's currently working on order. Will let DELMAR know once approved.
--- NOTE | 2019-08-09 16:50 | History and Physical ---
HISTORY OF PRESENT ILLNESS: The patient has osteomyelitis. This patient, who is a very pleasant 64-year-old white male, apparently has been sick for a few weeks and not eating well, getting slowly confused, sleeping more. No fever. No chills. care for facial swelling, muscle weakness and pain. Apparently, a few weeks ago, he had a take care when he was in [facility]. The patient called his physician getting progressively worse with weakness and not feeling well. So, the patient was sent to the emergency room. In the emergency room, he was seen and evaluated. The patient was noted to be having extreme hypercalcemia and hypokalemia. He also had CAT scan of his brain and chest x-ray. CT of the brain showed suspected right frontal sinus abscess with osteomyelitis. He was seen by ENT, who recommended long-term antibiotic, but the patient in general is just weak. LABORATORY DATA: White count 9.33, hemoglobin 12, and hematocrit 34. His sodium 130, potassium 2.5, creatinine 1.17 with a calcium of 13.9, and AST 144. PHYSICAL EXAMINATION: GENERAL: He is currently alert, oriented, does not seem to be in acute distress. VITAL SIGNS: Stable, afebrile. HEENT: He is not icteric. NECK: Supple. CHEST: Clear bilaterally. HEART: S1, S2. No S3, S4, or murmur. ABDOMEN: Soft. Bowel sounds present. No tenderness. No hepatosplenomegaly. EXTREMITIES: No edema. SKIN: No rash. MEDICATIONS: He is currently on: 1. K-Dur. 2. Pepcid. 3. Lasix. 4. Cefepime. IMPRESSION AND PLAN: 1. Hypercalcemia. I would recommend a full workup. CT of the pelvis and chest, consider Endocrine evaluation. 2. Hypokalemia, probably also related osteomyelitis. 3. Right frontal sinus. ENT was following. We will put him on vancomycin and cefepime. We will discuss with ENT if we need a PICC line. Recheck CBC. Recheck Chem-panel. Further recommendations to follow. MD ANGELLA Gross/HARMEET /[id number]
--- NOTE | 2019-08-09 18:11 | NUR ---
PICC Line has done, Talked to Dr Singh , he said hold the discharge for tomorrow since they working on with insurance for IV antibiotic.
--- NOTE | 2019-08-09 19:19 | Diagnostic Imaging Report ---
EXAMINATION: CHEST SINGLE (PORTABLE) INDICATION: PICC placement. COMPARISON: 07/28/2019. FINDINGS: LINES/TUBES:Right upper extremity PICC with distal tip projected on the cavoatrial junction. LUNGS:The lungs are mildly hyperinflated. No focal consolidation or pulmonary edema. PLEURA:No pleural effusion or pneumothorax. MEDIASTINUM:The cardiomediastinal silhouette appears normal in size and shape. BONES/SOFT TISSUES:No acute osseous injury. Internal fixation hardware of the left clavicle. ABDOMEN:No free air under the diaphragm. IMPRESSION: Right upper extremity PICC with distal tip projected on the cavoatrial junction. Signed by: Dr. Ranjit Parker M.D. on 08/09/2019 7:14 PM
--- NOTE | 2019-08-09 19:38 | NUR ---
patient discharged home, PICC line is intact, patient and his aware about f/up appointment with Dr Singh and Dr Grove, IVs removed with tip intact, no ss of infiltration noted, denies any pain. no distress noted, here to pick the patient
--- NOTE | 2019-08-10 05:27 | Discharge Summary ---
ADMISSION DIAGNOSES: 1. Acute sinusitis with right frontal sinus periosteal abscess with associated osteomyelitis. 2. Severe acute hypercalcemia. 3. Hypokalemia. 4. Hypertension. 5. Acute metabolic encephalopathy due to #1. 6. Acute kidney injury. 7. Transaminitis with EtOH abuse. 8. Acute mild hyponatremia. 9. Hypomagnesemia. 10. Hyperlipidemia. 11. Anxiety. 12. Recent tick bite four weeks ago. DISCHARGE DIAGNOSES: 1. Acute sinusitis with right frontal sinus periosteal abscess with associated osteomyelitis. 2. Severe acute hypercalcemia. 3. Hypokalemia. 4. Hypertension. 5. Acute metabolic encephalopathy due to #1. 6. Acute kidney injury. 7. Transaminitis with EtOH abuse. 8. Acute mild hyponatremia. 9. Hypomagnesemia. 10. Hyperlipidemia. 11. Anxiety. 12. Recent tick bite four weeks ago. 13. Pancreatitis. HISTORY: Hypertension, hyperlipidemia, and anxiety. SURGICAL HISTORY: Left shoulder replacement, left collarbone surgery. FAMILY HISTORY: Noncontributory. SOCIAL HISTORY: The patient admits to drinking alcohol daily, usually about two drinks a day. He also admits to smoking two packs per day since 26 years old. HOSPITAL COURSE: A 64-year-old male, admits with complaints of AMS, confusion, weakness since the tick bite four weeks ago. He was then seen in Urgent Care 9 days ago for facial swelling, muscle pain, joint pain, weakness, and was told his blood work was negative for Lyme disease. He was prescribed antibiotics, however, his weakness and confusion persisted. At the time of admission, he denies joint or muscle pain. On admission, CT of the brain showed no acute abnormalities. Chest x-ray was negative. The patient's calcium on admission was 18, ionized calcium was 2.1. Endocrinology was consulted. After further workup, the parathyroid hormone was low at 4 and vitamin D is still pending at the time of discharge. The bone scan of his whole body, which showed no evidence of metastatic or metabolic bone disease. CT of the abdomen and pelvis with contrast showed no evidence of metastatic disease or primary source in the chest, abdomen or pelvis. Diffuse hepatic steatosis. CT of the chest again showed no evidence of primary or metastatic disease and blood cultures were negative. Urine cultures were negative. After getting Lasix and Aredia, the patient's calcium trended down to normal. He will follow up with Dr. Grove for treatment. IR was consulted to try to drain the abscess, but per IR recommendation, there is no clinical need to do so. So, Infectious Disease had a PICC line placed and the patient will receive IV antibiotics in Dr. Singh's office. ENT was also consulted and he just ordered nasal sprays. The patient was supposed to discharge tomorrow, but is threatening to go against medical advice, if he cannot leave today. So, after discussing with Dr. Singh, the patient can discharge home with his PICC line and can follow up at 10:00 a.m., in Samantha's office tomorrow. The patient and family understand discharge instructions and agreed to plan, vital signs stable, the patient afebrile. MD RAYSA Marshall/HARMEET /[id number]
== END 2019-08-09 19:35 | disposition home or self-care (01) | DRG 152 ==
LOC: ER 12:14 → ERHOLD 15:10 → MED/SURG2 17:40
PROVIDERS: ADMIT Internal Medicine; ATTEND Internal Medicine
PROC: 02HV33Z Insertion of Infusion Device into Superior Vena Cava, Percutaneous Approach (ICD-10-PCS; principal; 2019-08-09)
DX: J01.10 Acute frontal sinusitis, unspecified (principal); G93.41 Metabolic encephalopathy; K85.90 Acute pancreatitis without necrosis or infection, unspecified; M86.8X8 Other osteomyelitis, other site; N17.9 Acute kidney failure, unspecified; E87.1 Hypo-osmolality and hyponatremia; E83.52 Hypercalcemia; E87.5 Hyperkalemia; E83.42 Hypomagnesemia; E78.5 Hyperlipidemia, unspecified; F41.9 Anxiety disorder, unspecified; F10.20 Alcohol dependence, uncomplicated; K76.0 Fatty (change of) liver, not elsewhere classified
CPT/HCPCS: 36415; 36569; 70450; 71045; 71260; 74018; 74177; 74470; 78306; 80053; 80202; 81001; 82140; 82306; 82550; 82553; 83036; 83519; 83690; 83735; 83880; 83970; 84443; 84484; 85025; 85610; 85651; 85730; 87040; 87086; 87635; 93005; 96361; 97139; 99284; A9503; J1720; J1940; J2430; J3370; J3480; J7030; Q9967